=== PATIENT | female | born 1945 | race Caucasian/White ===

== ENCOUNTER → 2016-11-08 | Outpatient (CLI) | payer OTHER ==
[~2016-11-08] MED LIST: ADULT LOW DOSE81 MG PO; AMLODIPINE BESY10 MG PO; ATENOLOL 100MG100 MG PO; ATORVASTATIN CA40 MG PO; CLONIDINE0.1 PO; COZAAR 50 MG TA50 M2 PO; CRESTOR5 MG PO; ELIQUIS5 MG PO; FISH OIL 1,2001 EAC4 PO; FISHOIL; HYDROCHLOROTH12.5 MG PO; K-DUR 20 MEQ T20 MEQ PO; LASIX 40 MG TAB40 M2 PO; LEVOTHYROXIN0.075 MG PO; LIPITOR40 MG PO; LISINOPRIL20 MG PO; MICARDIS40 MG PO; MULTIPLE VITAM1 EAC3 PO; MULTIVITAMINS PO; OCUVITE SOFTGE1 EAC1 PO; PROAIR HFA8.5 GM; TOPROL XL25 MG PO; VITAMIN D1000 UNI1 PO; XANAX 0.5 MG0.5 M1 PO
== END ==
LOC: RAD 05:33
DX: Z12.31 Encounter for screening mammogram for malignant neoplasm of breast (principal); R06.02 Shortness of breath

== ENCOUNTER 2017-11-21 09:28 | Inpatient (IN) | payer OTHER ==
[~2017-11-21] VITALS: Ht 160 cm; Wt 104.3 kg
--- NOTE | ~2017-11-21 | EKG ---
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 : 1945 Requested By: Yasir Ortiz Order Number: [id number] MD: Damián Dudley Measurements Intervals [place] Rate: 63 P: 41 NV: 169 QRS: -32 QRSD: 108 T: 6 QT: 441 QTc: 452 Interpretive Statements Sinus rhythm Left axis deviation Low voltage, precordial leads Poor R wave progression Nonspecific T wave abnormality Compared to ECG 10/30/2014 21:02:37 Atrial fibrillation no longer present Electronically Signed On 11-22-2017 14:06:14 CDT by Damián Dudley [email or web address] <ELECTRONICALLY SIGNED> By: Damián Dudley MD, [facility] 11/22/17 1406 0958 0958 Damián Dudley MD, [facility] /EPI
--- NOTE | ~2017-11-21 | PFR/MVV ---
[facility] [address] [place] [address] PULMONARY FUNCTION MVV/REPORT Name: DAVENANCY MUNGUIA SHANIQUA Room #: 222-P [facility] IN M.R.#: [id number] Admission: 11/21/17 Attend Phys: Marv Gracia MD Discharge: 11/24/17 Date of : 47 Report #: [id number] THIS REPORT FOR: //name// >> SPIROMETRY: (BTPS) Height: in cm Weight: lbs kg Exam Date: PRE-RX POST-RX PRED BEST %PRED BEST %PRED %CHG FVC LITERS . . . . . . FEV1 LITERS . . . . . . FEV1/FVC % . . . . . . YSZ20-94% L/Sec . . . . . . PEF L/SEC . . . . . . FEF50/FIF50 UNITLESS . . . . . . MVV L/Min . . . f 1/Min . . . >> LUNG VOLUMES: (BTPS) PRE-RX POST-RX PRED AVG %PRED AVG %PRED %CHG VC Liters . . . . . . TLC Liters . . . . . . RV Liters . . . . . . RV/TLC % . . . . . . FRC PL Liters . . . . . . FRC N2 Liters . . . . . . ERV Liters . . . . . . IC Liters . . . . . . >> DIFFUSION: DLCO ml/Min/mmHg . . . . . . DL [place] ml/Min/mmHg . . . . . . DLCO/VA ml/Min/mmHg . . . . . . VA Liters . . . . . . COMMENTS: COMMENTS: >> RESISTANCE: [facility] [address] [place] [address] PULMONARY FUNCTION MVV/REPORT Name: NANCY REAGAN SHANIQUA Room #: 222-P [facility] IN [facility].#: [id number] Admission: 11/21/17 Attend Phys: Marv Gracia MD Discharge: 11/24/17 Date of : 47 Report #: [id number] PRE-RX PRED AVG %PRED Raw Total cmH20/L/Sec . . . Raw Insp cmH20/L/Sec . . . Raw Exp cmH20/L/Sec . . . Raw cmH20/L/Sec . . . Gaw L/Sec/cmH20 . . . sRaw cmH20 Sec . . . sGaw l/cmH20 Sec . . . Vtq Liters . . . # = OUTSIDE 95% CONFIDENCE INTERVAL CALIBRATION: PRED: 3.00 ACTUAL: EXP 3.01 INSP 3.02 IPS-OL-06 [place] [address] N-1804-4 >> INTERPRETATION/IMPRESSION: CC: LUCY Gracia Spirometry pre showed short blows within normal limits. Post-inhalation did not qualify secondary to quality differences, within normal limits. By: Hebert Delacruz MD /nt
--- NOTE | ~2017-11-21 | HC ---
[facility] [address] [place] [address] CONSULTATION Name: NANCY REAGAN Room #: 430-P ADM IN M.R.#: [id number] Admission: 11/21/17 Attend Phys: Marv Gracia MD Discharge: Date of : 47 Report #: [id number] THIS REPORT FOR: //name// CC: LUCY Gracia MD DATE OF SERVICE: 11/22/2017 PULMONARY CONSULTATION REFERRING PROVIDER: Marv Gracia MD PRIMARY CARE PROVIDER: Lucy Fatima MD REASON FOR CONSULTATION: COPD exacerbation, shortness of breath. HISTORY OF PRESENT ILLNESS: Our group was asked to see the patient in consultation while hospitalized in [facility], seen by our group in the past, but not seen for the past few years, has known history of tobacco use, quitting several years ago after a myocardial infarction. Also, history of COPD with some daily cough, has not using any inhalers except p.r.n. at this time. Previously felt inhaled medications are not helping. Also had significant central sleep apnea noted on prior sleep studies. She has been intolerant to CPAP. The patient notes significant reflux symptoms, sometimes it awakening her at night and very severe, does not sleep with any upright posturing as she is more comfortable sleeping prone in her bed. The patient noted awakening 24 hours ago with increased shortness of breath, some cough with minimal sputum production. No fevers, chills or sweats. Also noted some chest discomfort, felt like she was having a reflux event, presented to the Emergency Department by [facility] and responded to inhaled bronchodilators and systemic steroids. EKG noted sinus rhythm with no EKG changes. Chest x-ray revealed no acute change. Subsequently, somewhat improved in the last 24 hours. We were asked to see her this afternoon. ALLERGIES: None known. PAST MEDICAL HISTORY: 1. History of coronary artery disease. 2. History of atrial fibrillation, currently normal sinus rhythm after cardioversion several years ago. 3. History of central sleep apnea, awaiting further evaluation at [facility] originally scheduled for tomorrow. 4. Chronic obstructive pulmonary disease, currently on no inhaled therapy. 5. Hypertension. [facility] [address] [place] [address] CONSULTATION Name: NANCY REAGAN SHANIQUA Room #: 430-[facility] IN M.R.#: [id number] Admission: 11/21/17 Attend Phys: Marv Gracia MD Discharge: Date of : 47 Report #: [id number] 6. History of prior fibroid tumor removal from breast. 7. Hyperlipidemia. 8. Atherosclerotic coronary artery disease, status post 2 stents in 2003. 9. Hypothyroidism. 10. Gastroesophageal reflux disease. 11. History of tobacco abuse. 12. History of basal cell cancer. 13. History of appendectomy. OUTPATIENT MEDICATIONS: Include vitamin C, Eliquis, atorvastatin, Lasix, potassium chloride, aspirin, fish oil, Synthroid, vitamin D, Zantac, irbesartan, Ranexa, and Cymbalta. SOCIAL HISTORY: The patient is an ex-smoker, quitting in 2003. No significant alcohol consumption. Retired. 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 FAMILY HISTORY: Negative for any significant pulmonary disease. REVIEW OF SYSTEMS: CONSTITUTIONAL: Except as described in HPI, rest of 12-point review of systems is normal except for some increased lower extremity edema. PHYSICAL EXAMINATION: VITAL SIGNS: Afebrile, pulse 90s and regular, respiratory rate 18, blood pressure 157/63, oxygen saturation 93% on room air. GENERAL: This is an obese, elderly woman, does not appear in any distress, able to speak in full sentences. ENT: Clear oropharynx, Mallampati 2 airway, no thrush, no erythema. NECK: Supple, no lymphadenopathy. LUNGS: Diminished with some expiratory wheezes noted and prolonged expiratory phase. CARDIOVASCULAR: Heart regular. No murmurs noted. ABDOMEN: Obese, soft, nontender, no masses. EXTREMITIES: With trace edema. INTEGUMENT: Right lower extremity tattoo noted. Multiple seborrheic keratoses noted. No rashes. LABORATORY DATA: White blood cell count 11,000; hemoglobin 12, hematocrit 36, platelet count 232. Sodium 143, potassium 4.0, chloride 106, bicarbonate 25, BUN 21, creatinine 1.2, glucose 177. Lactate 1.9. Arterial blood gas revealed pH 7.42, pCO2 of 42, pO2 of 71, ____. On room air, chest x-ray revealed some mild cardiomegaly, increased pulmonary vascular markings, no infiltrates. IMPRESSION: 1. Acute respiratory distress, improving. Suspect exacerbation of chronic [address] [address] CONSULTATION Name: NANCY REAGAN SHANIQUA Room #: 430-P [facility] IN M.R.#: [id number] Admission: 11/21/17 Attend Phys: Marv Gracia MD Discharge: Date of : 47 Report #: [id number] obstructive pulmonary disease, would be very concerned about the possibility of ongoing esophageal reflux with aspiration. 2. History of central sleep apnea, untreated. 3. History of coronary artery disease. 4. Hypothyroidism. 5. Possible pneumonia. SUGGESTIONS: 1. CT scan of the chest. 2. Rocephin and azithromycin. 3. Systemic steroids. 4. Bronchodilators. 5. Check TSH. 6. More aggressively treat reflux. 7. Follow up at regarding sleep apnea issues. Thank you for requesting our suggestions. By: [id number] 0123 Rasta Cruz MD /nt
[~2017-11-21 09:28] MED LIST changes: -LEVOTHYROXIN0.075 MG PO; +SYNTHROID75 MCG PO
[2017-11-21 09:29] VITALS: BP 141/81
[2017-11-21 09:47] LABS: ABSOLUTE NEUTROPHILS 5.5 thou/uL (1.4-8.2); BASOPHILS 0.8 % (0.0-2.0); EOSINOPHILS 4.4 % (0.0-3.0); HEMATOCRIT 38.1 % (37.0-47.0); HEMOGLOBIN 12.6 gm/dL (12.0-15.0); LYMPHOCYTES 26.8 % (24.0-44.0); MCH 27.3 pg (26.0-34.0); MCHC 33.1 g/dL (28.0-37.0); MCV 82.6 fL (80.0-100.0); MONOCYTES 6.4 % (1.0-8.0); PLATELET COUNT 215 thou/uL (150-400); POLYS 61.6 % (36.0-66.0); RBC 4.61 mil/uL (4.20-5.00); RDW 15.9 % (10.5-14.5)
[2017-11-21 09:56] LABS: ANION GAP 7 mmol/L (7-16); BUN 18 mg/dL (7-18); CALCIUM 9.1 mg/dL (8.5-10.1); CHLORIDE 105 mmol/L (98-107); CO2 30 mmol/L (21-32); CREATININE 1.3 mg/dL (0.6-1.0); GLUCOSE 135 mg/dL (74-106); SODIUM 142 mmol/L (136-145)
[2017-11-21 10:05] LABS: TROPONIN-I < 0.04 ng/mL (<0.06)
[2017-11-21 10:09] LABS: BE(vivo) 1.6 mmol/L (-2 to +3); HCO3 26.3 mmol/L (22.0-26.0); PCO2 41.6 mmHg (35.0-45.0); PO2 71.2 mmHg (80.0-100.0); pH 7.419 (7.360-7.450); sO2 94.6 % (92.0-98.0)
[2017-11-21 17:46] VITALS: BP 107/64
[2017-11-21] MEDS ORDERED: ZANTAC 150MG T150 MG PO (17:53)
[2017-11-21] MEDS ORDERED: RANEXA500 MG PO (17:54)
[2017-11-21] MEDS ORDERED: IRBESARTAN300 MG PO (17:54)
[2017-11-21] MEDS ORDERED: CYMBALTA30 MG PO (17:55)
[2017-11-21 18:17] VITALS: BP 107/64
[2017-11-21] MEDS ORDERED: CLARITIN10 MG PO (21:09)
[2017-11-21] MEDS ORDERED: CYMBALTA60 MG PO (21:13)
[2017-11-22 03:52] VITALS: BP 149/95
[2017-11-22 05:41] LABS: HEMATOCRIT 35.6 % (37.0-47.0); HEMOGLOBIN 11.7 gm/dL (12.0-15.0); MCH 27.1 pg (26.0-34.0); MCHC 32.9 g/dL (28.0-37.0); MCV 82.3 fL (80.0-100.0); RBC 4.32 mil/uL (4.20-5.00); RDW 16.3 % (10.5-14.5); WBC 10.7 thou/uL (4.0-11.0)
[2017-11-22 06:01] LABS: CALCIUM 8.6 mg/dL (8.5-10.1); CREATININE 1.3 mg/dL (0.6-1.0)
[2017-11-22 07:50] VITALS: BP 157/63
[2017-11-22 21:45] VITALS: BP 171/84
[2017-11-23 06:00] VITALS: BP 142/99
[2017-11-23 07:40] VITALS: BP 161/87
[2017-11-23 08:30] VITALS: BP 161/87
[2017-11-23 09:15] VITALS: BP 161/87
[2017-11-23 16:20] VITALS: BP 143/85
[2017-11-23 19:49] VITALS: BP 150/90
[2017-11-24 08:39] VITALS: BP 152/96
[2017-11-24 11:11] LABS: ABSOLUTE NEUTROPHILS 9.5 thou/uL (1.4-8.2); BASOPHILS 0.1 % (0.0-2.0); HEMATOCRIT 38.8 % (37.0-47.0); HEMOGLOBIN 12.4 gm/dL (12.0-15.0); LYMPHOCYTES 8.4 % (24.0-44.0); MCH 26.7 pg (26.0-34.0); MCHC 32.1 g/dL (28.0-37.0); MCV 83.2 fL (80.0-100.0); MONOCYTES 2.2 % (1.0-8.0); PLATELET COUNT 257 thou/uL (150-400); POLYS 89.3 % (36.0-66.0); RBC 4.66 mil/uL (4.20-5.00); RDW 16.2 % (10.5-14.5); WBC 11.3 thou/uL (4.0-11.0)
[2017-11-24] MEDS ORDERED: PREDNISONE 10 M10 MG PO (11:13)
[2017-11-24] MEDS ORDERED: DOXYCYCLINE 10100 MG PO (11:14)
[2017-11-24 11:23] LABS: ALBUMIN 3.6 g/dL (3.4-5.0); CALCIUM 8.8 mg/dL (8.5-10.1); CREATININE 1.3 mg/dL (0.6-1.0); POTASSIUM 4.2 mmol/L (3.5-5.1); TOTAL BILIRUBIN 0.4 mg/dL (<0.1-1.0); TOTAL PROTEIN 7.3 g/dL (6.4-8.2)
[2017-11-24 18:10] VITALS: BP 152/96
== END 2017-11-24 18:56 | disposition home or self-care (01) | DRG 189 ==
LOC: ER 09:28 → EROBS 11:24 → 4E 11:24 → SICU 11-23 12:58
PROVIDERS: Hospitalist; Physician Assistant
DX: J96.90 Respiratory failure, unspecified, unspecified whether with hypoxia or hypercapnia (principal); J44.1 Chronic obstructive pulmonary disease with (acute) exacerbation; E87.2 Acidosis; N17.9 Acute kidney failure, unspecified; Z68.41 Body mass index [BMI] 40.0-44.9, adult; E78.00 Pure hypercholesterolemia, unspecified; I48.91 Unspecified atrial fibrillation; I25.10 Atherosclerotic heart disease of native coronary artery without angina pectoris; E78.5 Hyperlipidemia, unspecified; E03.9 Hypothyroidism, unspecified; K21.9 Gastro-esophageal reflux disease without esophagitis; G47.33 Obstructive sleep apnea (adult) (pediatric); F32.9 Major depressive disorder, single episode, unspecified; N18.9 Chronic kidney disease, unspecified; I12.9 Hypertensive chronic kidney disease with stage 1 through stage 4 chronic kidney disease, or unspecified chronic kidney disease; E66.9 Obesity, unspecified; Z60.2 Problems related to living alone; M62.84 Sarcopenia; I25.2 Old myocardial infarction; Z95.5 Presence of coronary angioplasty implant and graft; Z87.891 Personal history of nicotine dependence; Z90.49 Acquired absence of other specified parts of digestive tract; Z79.82 Long term (current) use of aspirin; Z79.899 Other long term (current) drug therapy
CPT/HCPCS: 10183; 15002

== ENCOUNTER → 2017-12-13 | Outpatient (CLI) | payer OTHER ==
[~2017-12-13] MED LIST changes: +CLARITIN10 MG PO; +CYMBALTA30 MG PO; +CYMBALTA60 MG PO; +DOXYCYCLINE 10100 MG PO; +IRBESARTAN300 MG PO; +PREDNISONE 10 M10 MG PO; +RANEXA500 MG PO; +ZANTAC 150MG T150 MG PO
== END ==
LOC: ULTRA 14:02
DX: E04.1 Nontoxic single thyroid nodule (principal)

== ENCOUNTER → 2018-06-14 | Outpatient (CLI) | payer OTHER | LOC: ULTRA 08:27 | DX: E04.2 Nontoxic multinodular goiter (principal); R91.1 Solitary pulmonary nodule ==

== ENCOUNTER → 2019-03-27 | Outpatient (CLI) | payer OTHER | LOC: RAD 09:43 | DX: Z12.31 Encounter for screening mammogram for malignant neoplasm of breast (principal) ==

== ENCOUNTER → 2019-11-13 | Outpatient (CLI) | payer OTHER ==
[~2019-11-13] MED LIST changes: +AMIODARONE HCL400 MG PO; +AVAPRO300 MG PO; +BYSTOLIC10 MG PO; +PROTONIX40 M2 PO; +TORSEMIDE20 MG PO
== END ==
LOC: SJCVC 15:05
PROVIDERS: ATTEND Internal Medicine Cardiovascular Disease
DX: R94.31 Abnormal electrocardiogram [ECG] [EKG] (principal); I48.91 Unspecified atrial fibrillation; I25.10 Atherosclerotic heart disease of native coronary artery without angina pectoris; E78.00 Pure hypercholesterolemia, unspecified; D68.59 Other primary thrombophilia; I10 Essential (primary) hypertension; G47.39 Other sleep apnea; R06.02 Shortness of breath; I35.0 Nonrheumatic aortic (valve) stenosis

== ENCOUNTER → 2019-11-23 | Outpatient (CLI) | payer OTHER | LOC: SJCVCIMAG 09:09 | PROVIDERS: ATTEND Internal Medicine Cardiovascular Disease | DX: I08.8 Other rheumatic multiple valve diseases (principal); I48.91 Unspecified atrial fibrillation; I44.4 Left anterior fascicular block; R94.31 Abnormal electrocardiogram [ECG] [EKG]; I25.10 Atherosclerotic heart disease of native coronary artery without angina pectoris; E78.00 Pure hypercholesterolemia, unspecified; R53.83 Other fatigue; I13.0 Hypertensive heart and chronic kidney disease with heart failure and stage 1 through stage 4 chronic kidney disease, or unspecified chronic kidney disease; N18.2 Chronic kidney disease, stage 2 (mild); I50.9 Heart failure, unspecified; D68.59 Other primary thrombophilia; E03.9 Hypothyroidism, unspecified; M85.80 Other specified disorders of bone density and structure, unspecified site; I25.2 Old myocardial infarction; Z79.82 Long term (current) use of aspirin; Z79.899 Other long term (current) drug therapy; Z87.891 Personal history of nicotine dependence; Z98.890 Other specified postprocedural states ==

== ENCOUNTER → 2019-11-26 | Outpatient (CLI) | payer OTHER | LOC: LAB 13:00 | PROVIDERS: ATTEND Internal Medicine Cardiovascular Disease | DX: Z01.818 Encounter for other preprocedural examination (principal); Z11.59 Encounter for screening for other viral diseases ==

== ENCOUNTER → 2019-11-28 | Outpatient (CLI) | payer OTHER ==
[~2019-11-28] VITALS: Ht 160 cm; Wt 104.3 kg
--- NOTE | 2019-11-28 08:46 | TEE ---
[facility] [place] [address] [place] [address] TRANSESOPHAGEAL ECHOCARDIOGRAM Name: NANCY REAGAN Room #: REG [facility]if[facility] Gross#: [id number] Admission: 11/28/19 Attend Phys: Damián Dudley MD, Discharge: Date of : 47 Report #: [id number] THIS REPORT FOR: cc: FAM - No family physician/PCP FAM - No family physician/PCP Damián Dudley MD [facility] ~ APPROVED REPORT Study performed: 11/28/2019 07:42:01 EXAM: Transesophageal Echocardiogram with Doppler and Cardioversion Patient Location: Out-Patient Room #: CV Status: routine BSA: 2.05 HR: 73 bpm BP: 139/86 mmHg Rhythm: Atrial Fibrillation Other Information Study Quality: Good Indications Atrial Fibrillation Cardioversion Procedure After obtaining informed consent, patient underwent transesophageal echo in the [employer]. Type of Sedation : Conscious Sedation Sedation was administered by BRENNEN Hartman. Sedation was achieved intravenously with: Versed (3) Fentanyl (50) Transesophageal probe was inserted and advanced into esophagus without difficulty by Damián Dudley MD. Echo enhancement indication: R/O Septal defect. Echo enhancement agent administered: Agitated Saline The CINDY was performed without complications. Synchronized Cardioversion acheived with 1 Joules after 120 attempt(s). Throughout the procedure, the blood pressure, pulse oximetry, cardiac rhythm, and rate were monitored. The patient tolerated the procedure without adverse effects. Recovery [facility] [address] [place] [address] TRANSESOPHAGEAL ECHOCARDIOGRAM Name: NANCY REAGAN Room #: REG CL [facility]#: [id number] Admission: 11/28/19 Attend Phys: Damián Dudley, Discharge: Date of : 47 Report #: [id number] from conscious sedation was uneventful and vital signs were stable. Left Ventricle The left ventricle is normal size. There is normal LV segmental wall motion. Mild concentric left ventricular hypertrophy. Left ventricular systolic function at the lower limits of normal. LVEF is 50%. Right Ventricle The right ventricle is normal size. The right ventricular systolic function is normal. Atria Left atrium is moderately dilated. No thrombus is visualized in the left atrium or appendage. No shunting noted by contrast bubble injection. Right atrium is moderately dilated. Aortic Valve The aortic valve is normal in structure. No aortic regurgitation is present. There is no aortic valvular stenosis. Mitral Valve The mitral valve is normal in structure. Mild mitral regurgitation. No evidence of mitral valve stenosis. Tricuspid Valve The tricuspid valve is normal in structure. Mild tricuspid regurgitation. Pulmonic Valve The pulmonary valve is normal in structure. Trace pulmonic regurgitation. Great Vessels The aortic root is normal in size. Mild atherosclerotic plaquing in the descending aorta. IVC is normal in size and collapses >50% with inspiration. Pericardium There is no pericardial effusion. <Conclusion> Left ventricular systolic function at the lower limits of normal. There is normal LV segmental wall motion. [facility] [address] [place] [address] TRANSESOPHAGEAL ECHOCARDIOGRAM Name: NANCY REAGAN Room #: REG [facility]#: [id number] Admission: 11/28/19 Attend Phys: Damián Dudley, Discharge: Date of : 47 Report #: [id number] LVEF is 50%. Both atria are moderately dilated. No thrombus is visualized in the left atrium or appendage. No shunting noted by contrast bubble injection. The aortic valve is normal in structure. No aortic regurgitation or stenosis. The mitral valve is normal in structure. Mild mitral regurgitation. Mild atherosclerotic plaquing in the descending aorta. There is no pericardial effusion. Successful cardioversion of atrial fibrillation to sinus rhythm following a single 120 J synchronous shock <ELECTRONICALLY SIGNED> By: Damián Dudley MD, FAC 11/28/1944 4 4 Damián Dudley MD, FAC /INF
--- NOTE | 2019-11-28 15:46 | EKG ---
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[facility] : 1945 Requested By: Damián Dudley Order Number: [id number] MD: Gabe Solano Measurements Intervals [place] Rate: 49 P: 65 MO: 199 QRS: -29 QRSD: 104 T: 52 QT: 540 QTc: 488 Interpretive Statements Sinus bradycardia Atrial premature complex Inferior infarct, old Consider anterior infarct Compared to ECG 11/21/2017 09:58:05 Atrial premature complex(es) now present Myocardial infarct finding now present Sinus rhythm no longer present Left-axis deviation no longer present Poor R-wave progression no longer present T-wave abnormality no longer present Electronically Signed On 11-28-2019 15:45:14 CDT by Gabe Solano [email or web address] <ELECTRONICALLY SIGNED> By: Gabe Solano MD 11/28/19 1545 0853 Gabe Solano MD /EPI
== END | disposition home or self-care (01) ==
LOC: CATH 06:30
PROVIDERS: ATTEND Internal Medicine
DX: I48.91 Unspecified atrial fibrillation (principal); I70.0 Atherosclerosis of aorta; I08.1 Rheumatic disorders of both mitral and tricuspid valves

== ENCOUNTER → 2019-12-05 | Outpatient (CLI) | payer OTHER | LOC: SJCVC 12:57 | PROVIDERS: ATTEND Internal Medicine Cardiovascular Disease | DX: R00.1 Bradycardia, unspecified (principal); R94.31 Abnormal electrocardiogram [ECG] [EKG]; I48.0 Paroxysmal atrial fibrillation; I25.10 Atherosclerotic heart disease of native coronary artery without angina pectoris; E78.00 Pure hypercholesterolemia, unspecified; D68.59 Other primary thrombophilia; I38 Endocarditis, valve unspecified; I13.0 Hypertensive heart and chronic kidney disease with heart failure and stage 1 through stage 4 chronic kidney disease, or unspecified chronic kidney disease; N18.2 Chronic kidney disease, stage 2 (mild); I50.9 Heart failure, unspecified; E78.5 Hyperlipidemia, unspecified; E03.9 Hypothyroidism, unspecified; I25.2 Old myocardial infarction; M85.80 Other specified disorders of bone density and structure, unspecified site; Z79.82 Long term (current) use of aspirin; Z79.899 Other long term (current) drug therapy; Z82.49 Family history of ischemic heart disease and other diseases of the circulatory system; Z87.891 Personal history of nicotine dependence ==

== ENCOUNTER → 2020-06-13 | Outpatient (CLI) | payer OTHER | LOC: SJCVC 16:13 | PROVIDERS: ATTEND Internal Medicine Cardiovascular Disease | DX: R94.31 Abnormal electrocardiogram [ECG] [EKG] (principal); I25.10 Atherosclerotic heart disease of native coronary artery without angina pectoris; I10 Essential (primary) hypertension; I48.0 Paroxysmal atrial fibrillation; R00.1 Bradycardia, unspecified; G47.33 Obstructive sleep apnea (adult) (pediatric); Z79.899 Other long term (current) drug therapy ==

== ENCOUNTER 2020-12-18 06:29 | Observation (INO) | payer OTHER ==
[2020-12-18] VITALS (9 sets, daily range): BP systolic 135–191; BP diastolic 64–96
[~2020-12-18] VITALS: Ht 160 cm; Wt 108.5 kg
[2020-12-18 07:44] LABS: HEMATOCRIT 28.6 % (37.0-47.0); HEMOGLOBIN 8.8 gm/dL (12.0-15.0); MCH 21.1 pg (26.0-34.0); MCHC 30.9 g/dL (28.0-37.0); MCV 68.5 fL (80.0-100.0); RBC 4.17 mil/uL (4.20-5.00); RDW 18.3 % (10.5-14.5); WBC 6.9 thou/uL (4.0-11.0)
[2020-12-18 07:53] LABS: CALCIUM 8.1 mg/dL (8.5-10.1); CREATININE 1.4 mg/dL (0.6-1.0); POTASSIUM 3.7 mmol/L (3.5-5.1)
[2020-12-18] MEDS ORDERED: SUPER THERAVIT1 EACH PO (07:56)
[2020-12-18] MEDS ORDERED: OMEGA-3 FISH1200 MG PO (07:57)
--- NOTE | 2020-12-18 08:14 | EKG ---
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 <ELECTRONICALLY SIGNED> By: Rasta Howard MD, [facility] 12/18/20813 0 0 Rasta Howard MD, [facility] /EPI
[2020-12-18] MEDS ORDERED: EFFIENT10 MG PO (12:14)
--- NOTE | 2020-12-18 17:05 | CATHLAB ---
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 A PINNACLE 6FR Sheath #[id number] sheath was inserted into the RFA^. Coronary angiography was performed using coronary diagnostic catheters. The right coronary system was accessed and visualized with a JR4 catheter. The left coronary system was accessed and visualized with a JL4 catheter. The left ventricle was accessed and visualized with a PIGTAIL catheter. Left ventriculogram was performed in 30 degree projection. An aortogram of the abdominal aorta was performed. Closure device was deployed with a 6 Fr MYNXGRIP [facility] [place] [address] INVASIVE PROCEDURE REPORT Name: DAVENANCY MUNGUIA SHANIQUA Room #: [facility] IN ..#: [id number] Admission: 12/18/20 Attend Phys: Ck Ness, Discharge: Date of : 47 Report #: [id number] 6/7F #[id number]. Hemostasis was obtained with manual pressure following sheath removal without any complications. The patient tolerated the procedure well and there were no complications associated with the procedure. There was no hematoma. Intraoperative Conscious Sedation Sedation start time: 906 Case end Time: 1003 Fentanyl 50 mcg Versed 1.5 mg Fluoro Time: 7.90 minutes Dose: DAP 68943.90 cGycm2 2830 mGy Contrast Type and Amount: Visipaque 200 ml Hemodynamics The aortic pressure is 171/82 mmHg with a mean of 116 mmHg. The left ventricular pressure is 194/15 mmHg with a mean of mmHg. The left ventricular end diastolic pressure is 36 mmHg. PCI Technique Lesion Percutaneous coronary intervention was performed on the first diagnonal branch segment. A LAUNCHER 6FR EBU 3.75 #[id number] Guide Catheter was used to engage the ostium. A Luge Wire .014 x 182CM #[id number] Interventional Guidewire was used to cross the lesion. BALLOON DILATION A Balloon catheter Sprinter OTW 2.5 x 15 #[id number] was inserted and inflated up to 12.00atm for 21seconds. Additional Inflation: 16.00atm for 22seconds. Additional Inflation: 12.00atm for 21seconds. Additional inflation: 12 radha for 21 sec. Additional inflation: 12 radha for 15 sec. Additional inflation: 16 radha for 16 sec. STENT DEPLOYMENT A drug-eluting stent RESOLUTE DEEJAY OTW 2.5 X 38 #[id number] was inserted and inflated up to 18.00atm for 38seconds. POST STENT DEPLOYMENT BALLOON DILATION A Balloon catheter TREK NC OTW 2.75 X 15 #[id number] was inserted and inflated up to 16.00atm for 21seconds. Additional Inflation: 18.00atm for 13seconds. Additional Inflation: 18.00atm for 12seconds. Additional inflation: 18 radha for 12 sec. Conclusion #1 Successful PTCA stent of high-grade proximal diagonal and in-stent restenosis in proximal mid diagonal placement of a 2.5 x [address] [address] INVASIVE PROCEDURE REPORT Name: NANCY REAGAN Room #: 206-P [facility] IN M.R.#: [id number] Admission: 12/18/20 Attend Phys: Ck Ness, Discharge: Date of : 47 Report #: [id number] resolute Deejay postdilated with a noncompliant balloon to 2.7 mm JOSE F grade III flow #2 left main with mild disease giving rise to the LAD and circumflex. #3 the LAD is mild irregularities 30% proximal mid extends around the apex. No occlusive disease. Extensive collateralization to an occluded PDA from the septal perforators of the left system. #4 circumflex OM codominant moderate diffuse distal disease no occlusive disease. #5 dominant right coronary artery occluded the PDA is well collateralized via the left system. #6 normal left ventricular size and systolic function near normal EF 50% range #7 abdominal aortogram mild aortic ectasia but no aneurysm formation. Recommendations and plan: Continue aggressive risk factor modification. Dual antiplatelet therapy has been initiated transfer to CCU to follow post coronary stent protocol. <ELECTRONICALLY SIGNED> By: Ck Ness MD, FACC 12/18/201704 04 04 Ck Ness MD, FACC /INF
--- NOTE | 2020-12-18 18:24 | NUR ---
PT ADMITED FROM [facility]. ADMISSION HX AND ASSESSMENT COMPLETED. RIGHT GROIN INCISION C/DI. NO HEMATOMA NOTED. ORDERS NOTED. SR/SB ON TELE. NO CONCERNS AT THIS TIME.
[2020-12-19 02:55] LABS: HEMATOCRIT 29.3 % (37.0-47.0); HEMOGLOBIN 9.1 gm/dL (12.0-15.0); MCH 21.2 pg (26.0-34.0); MCV 68.6 fL (80.0-100.0); RBC 4.28 mil/uL (4.20-5.00); RDW 18.2 % (10.5-14.5); WBC 8.2 thou/uL (4.0-11.0)
--- NOTE | 2020-12-19 03:08 | NUR ---
PT IS A/O X4 AND IS UP WITH SBA TO THE BR. PLEASANT AND COOPERATIVE. VSS AFEBRILE. DENIES C/O PAIN OR DISCOMFORT. CALLS OUT APPROPRIATELY FOR ASSISTANCE. OSEI C/D/I. WILL CONTINUE TO MONITOR. PT IS PROGRESSING TOWARDS PLAN OF CARE DC GOALS.
[2020-12-19 04:06] LABS: ALBUMIN 3.7 g/dL (3.4-5.0); ANION GAP 10 mmol/L (7-16); BUN 12 mg/dL (7-18); CALCIUM 8.4 mg/dL (8.5-10.1); CHLORIDE 108 mmol/L (98-107); CO2 28 mmol/L (21-32); CREATININE 1.3 mg/dL (0.6-1.0); GLUCOSE 105 mg/dL (74-106); POTASSIUM 3.6 mmol/L (3.5-5.1); SGOT 17 U/L (15-37); SGPT 22 U/L (30-65); SODIUM 146 mmol/L (136-145); TOTAL BILIRUBIN 0.6 mg/dL (0.2-1.0); TOTAL PROTEIN 7.2 g/dL (6.4-8.2); TROPONIN-I <0.06 ng/mL (<0.06)
[2020-12-19 04:08] VITALS: BP 154/75
[2020-12-19 07:49] VITALS: BP 144/82
[2020-12-19 11:12] VITALS: BP 148/74
[2020-12-19 13:42] VITALS: BP 148/74
--- NOTE | 2020-12-19 14:17 | NUR ---
RECEIVED THE PATIENT CONSCIOUS AND ORIENTED.ON ROOM AIR BREATHING SPONTANEOUSLY.NOT IN PAIN OR DISTRESS.FACILITATED DISCHARGE.DISCHARGE PACKET GIEV TO THE PATIENT AND EVERYTHING WAS EXPLAINED TO THE PATIENT.POST CARDIAC CATH SITE CARE INSTRUCTIONS GIVEN.DISCHARGED PATIENT FROM THE UNIT ON STABLE CONDITION.
== END 2020-12-19 14:11 | disposition home or self-care (01) ==
LOC: CATH 06:29 → 2N 11:36 → CATH 12:35 → 2N 12-19 14:11
PROVIDERS: Nurse Practitioner Adult Health; ADMIT Internal Medicine Cardiovascular Disease; ATTEND Internal Medicine Cardiovascular Disease
DX: I25.10 Atherosclerotic heart disease of native coronary artery without angina pectoris (principal); E78.5 Hyperlipidemia, unspecified; I48.0 Paroxysmal atrial fibrillation; M19.90 Unspecified osteoarthritis, unspecified site; I13.0 Hypertensive heart and chronic kidney disease with heart failure and stage 1 through stage 4 chronic kidney disease, or unspecified chronic kidney disease; N18.9 Chronic kidney disease, unspecified; I50.9 Heart failure, unspecified; J44.1 Chronic obstructive pulmonary disease with (acute) exacerbation; E87.2 Acidosis; Z98.890 Other specified postprocedural states

== ENCOUNTER → 2020-12-24 | Outpatient (CLI) | payer OTHER ==
[~2020-12-24] MED LIST changes: +EFFIENT10 MG PO; +OMEGA-3 FISH1200 MG PO; +SUPER THERAVIT1 EACH PO
== END ==
LOC: SJCVCIMAG 15:21
PROVIDERS: ATTEND Internal Medicine Cardiovascular Disease
DX: R19.09 Other intra-abdominal and pelvic swelling, mass and lump (principal); R10.2 Pelvic and perineal pain; M79.661 Pain in right lower leg

== ENCOUNTER → 2021-02-11 | Outpatient (CLI) | payer OTHER | LOC: CAT 09:39 | PROVIDERS: ATTEND Internal Medicine Pulmonary Disease | DX: Z12.31 Encounter for screening mammogram for malignant neoplasm of breast (principal); R06.02 Shortness of breath; Z78.0 Asymptomatic menopausal state; M85.88 Other specified disorders of bone density and structure, other site; N64.89 Other specified disorders of breast; K80.20 Calculus of gallbladder without cholecystitis without obstruction; E04.9 Nontoxic goiter, unspecified ==

== ENCOUNTER → 2021-03-27 | Outpatient (CLI) | payer OTHER | LOC: SJCVC 12:44 | PROVIDERS: ATTEND Internal Medicine Cardiovascular Disease | DX: I44.4 Left anterior fascicular block (principal); R94.31 Abnormal electrocardiogram [ECG] [EKG]; I25.10 Atherosclerotic heart disease of native coronary artery without angina pectoris; I10 Essential (primary) hypertension; E78.00 Pure hypercholesterolemia, unspecified; D68.59 Other primary thrombophilia; I35.0 Nonrheumatic aortic (valve) stenosis; I48.0 Paroxysmal atrial fibrillation; G47.33 Obstructive sleep apnea (adult) (pediatric); I13.0 Hypertensive heart and chronic kidney disease with heart failure and stage 1 through stage 4 chronic kidney disease, or unspecified chronic kidney disease; N18.9 Chronic kidney disease, unspecified; E78.5 Hyperlipidemia, unspecified; F32.9 Major depressive disorder, single episode, unspecified; E03.9 Hypothyroidism, unspecified; I50.9 Heart failure, unspecified; J44.9 Chronic obstructive pulmonary disease, unspecified; Z98.890 Other specified postprocedural states; Z87.891 Personal history of nicotine dependence; Z72.89 Other problems related to lifestyle; Z79.899 Other long term (current) drug therapy; Z95.5 Presence of coronary angioplasty implant and graft ==